=== PATIENT | female | born 1965 | race Caucasian/White ===

== ENCOUNTER 2018-01-16 12:08 | Emergency (ER) | payer OTHER ==
[~2018-01-16] VITALS: Ht 172.7 cm; Wt 68.0 kg
[~2018-01-16 12:08] MED LIST: PROZAC40 MG PO; [UNRECOGNIZED DRUG - OTHER]; [UNRECOGNIZED DRUG - REMARK]
[2018-01-16] MEDS ORDERED: KEFLEX500 M1 PO ×2 (13:03→13:07)
[2018-01-16] MEDS ORDERED: DIFLUCAN150 MG PO (13:28)
== END 2018-01-16 13:45 | disposition home or self-care (01) ==
LOC: ER 12:08
DX: T23.212A Burn of second degree of left thumb (nail), initial encounter (principal); T31.0 Burns involving less than 10% of body surface